=== PATIENT | male | born 1995 | race Caucasian/White ===

== ENCOUNTER 2017-09-06 01:10 | Emergency (ER) | payer OTHER, BC ==
[~2017-09-06] VITALS: Ht 167.6 cm; Wt 56.0 kg
[2017-09-06] MEDS ORDERED: KETOROLAC 30MG/ML VIAL IV STA (02:20)
[2017-09-06] MEDS ORDERED: ONDANSETRON HCL 4MG/2ML VIAL IV STA (02:20)
[2017-09-06] MEDS ORDERED: SODIUM CHLORIDE 0.9% 1,000 ML IV ONE (02:20)
[2017-09-06] MEDS ORDERED: TETANUS, DIPHTHERIA, PERTUSSIS VAC/PF 0.5ML (>7YR OLD) IM ONE (02:30)
[2017-09-06] MEDS ORDERED: BACITRACIN ZINC OINT UDPKT TOP ONE (02:30)
[2017-09-06 04:54] VITALS: BP 124/77
== END 2017-09-06 04:55 | disposition home or self-care (01) ==
LOC: ER 01:10
DX: S16.1XXA Strain of muscle, fascia and tendon at neck level, initial encounter (principal); R51 Headache; M25.561 Pain in right knee; M25.522 Pain in left elbow; M79.632 Pain in left forearm; M25.532 Pain in left wrist; M79.642 Pain in left hand; R03.0 Elevated blood-pressure reading, without diagnosis of hypertension; Y03.0XXA Assault by being hit or run over by motor vehicle, initial encounter; Y07.04 Female partner, perpetrator of maltreatment and neglect; Y93.89 Activity, other specified; Y92.410 Unspecified street and highway as the place of occurrence of the external cause; Z23 Encounter for immunization
CPT/HCPCS: 70450; 71010; 72125; 73080; 73090; 73110; 73562; 90471; 90715; 96361; 99284; J7030; J1885; J2405